=== PATIENT | female | born 1970 | race Caucasian/White ===

== ENCOUNTER 2021-04-05 14:52 | Emergency (ER) | payer OTHER ==
[~2021-04-05 14:52] MED LIST: KEFLEX CAP 500500 MG PO; MACROBID 100 M100 MG PO; OMNICEF 300 MG300 MG PO; PYRIDIUM100 MG PO; ZOFRAN ODT 4 MG4 MG SL; ZOFRAN4 MG PO
[2021-04-05] MEDS ORDERED: AUGMENTIN 500-500 MG PO (15:45)
== END 2021-04-05 16:44 | disposition home or self-care (01) ==
LOC: ER1 14:52
DX: S51.812A Laceration without foreign body of left forearm, initial encounter (principal); W54.0XXA Bitten by dog, initial encounter; F17.210 Nicotine dependence, cigarettes, uncomplicated
CPT/HCPCS: 12002; 99283